=== PATIENT | female | born 1965 | race Two or more races ===

== ENCOUNTER 2018-06-13 13:59 | Outpatient (CLI) | payer OTHER ==
[~2018-06-13 13:59] MED LIST: GINGER250 MG PO; NABUMETONE500 MG PO; PERCOCET 5/3251 TAB PO; TURMERIC ROOT5000 GM MC
== END 2018-06-13 14:23 | disposition home or self-care (01) ==
LOC: RAD 501 13:59
DX: M50.00 Cervical disc disorder with myelopathy, unspecified cervical region (principal); M50.10 Cervical disc disorder with radiculopathy, unspecified cervical region

== ENCOUNTER 2018-06-20 09:52 | Outpatient (CLI) | payer OTHER | END 2018-06-20 10:00 | disposition home or self-care (01) | LOC: RAD 501 09:52 | DX: M25.561 Pain in right knee (principal); M25.562 Pain in left knee; M25.511 Pain in right shoulder ==

== ENCOUNTER 2018-09-17 08:12 | Outpatient (CLI) | payer OTHER | END 2018-09-17 08:17 | disposition home or self-care (01) | LOC: TOM 08:12 | DX: M50.10 Cervical disc disorder with radiculopathy, unspecified cervical region (principal) ==

== ENCOUNTER 2019-02-13 08:27 | Outpatient (CLI) | payer OTHER | END 2019-02-13 17:00 | disposition home or self-care (01) | LOC: RAD 08:27 | DX: M25.511 Pain in right shoulder (principal); E07.89 Other specified disorders of thyroid; M25.552 Pain in left hip; M25.561 Pain in right knee; M25.562 Pain in left knee ==

== ENCOUNTER 2019-02-24 12:32 | Emergency (ER) | payer OTHER ==
[~2019-02-24] VITALS: Ht 154.9 cm; Wt 65.3 kg
== END 2019-02-24 14:10 | disposition home or self-care (01) ==
LOC: ER 12:32
DX: R07.89 Other chest pain (principal)

== ENCOUNTER 2019-04-17 09:19 | Outpatient (CLI) | payer OTHER | END 2019-04-17 09:29 | disposition home or self-care (01) | LOC: SONOGRAMA 09:19 | DX: M25.511 Pain in right shoulder (principal) ==

== ENCOUNTER 2019-09-09 10:09 | Outpatient (CLI) | payer OTHER | END 2019-09-09 10:23 | disposition home or self-care (01) | LOC: MAMO-SONO 10:09 | DX: Z12.31 Encounter for screening mammogram for malignant neoplasm of breast (principal); Z87.898 Personal history of other specified conditions ==

== ENCOUNTER 2019-12-23 14:24 | Inpatient (IN) | payer OTHER ==
[~2019-12-23] VITALS: Ht 154.9 cm; Wt 68.0 kg
[2019-12-26] MEDS ORDERED: GABAPENTIN800 M1 PO (08:24)
[2019-12-26] MEDS ORDERED: VOLTAREN-XR100 MG PO (08:24)
[2019-12-31] MEDS ORDERED: VOLTAREN100 GM (09:32)
[2019-12-31] MEDS ORDERED: GABAPENTIN400 MG PO (09:33)
[2019-12-31] MEDS ORDERED: DICLOFENAC SODI75 MG PO (11:03)
== END 2020-01-02 13:38 | disposition home or self-care (01) | DRG 467 ==
LOC: O/R 12-31 06:45 → SURH 12-31 07:00 → SURG 12-31 16:09
PROVIDERS: ADMIT Orthopaedic Surgery; ATTEND Orthopaedic Surgery
PROC: 0SWD0JZ Revision of Synthetic Substitute in Left Knee Joint, Open Approach (ICD-10-PCS; principal; 2019-12-31 07:00)
DX: T84.84XA Pain due to internal orthopedic prosthetic devices, implants and grafts, initial encounter (principal); D62 Acute posthemorrhagic anemia

== ENCOUNTER 2020-02-05 11:42 | Outpatient (CLI) | payer OTHER ==
[~2020-02-05 11:42] MED LIST changes: +DICLOFENAC SODI75 MG PO; +GABAPENTIN400 MG PO; +GABAPENTIN800 M1 PO; +VOLTAREN-XR100 MG PO; +VOLTAREN100 GM
== END 2020-02-05 11:51 | disposition home or self-care (01) ==
LOC: RAD 11:42
PROVIDERS: ATTEND Orthopaedic Surgery
DX: M25.551 Pain in right hip (principal); M25.552 Pain in left hip; M25.561 Pain in right knee; M25.562 Pain in left knee

== ENCOUNTER 2020-06-15 12:52 | Outpatient (CLI) | payer OTHER | END 2020-06-15 13:05 | disposition home or self-care (01) | LOC: RAD 12:52 | PROVIDERS: ATTEND Orthopaedic Surgery | DX: R07.89 Other chest pain (principal); M54.5 Low back pain ==

== ENCOUNTER 2020-07-01 12:53 | Outpatient (CLI) | payer OTHER | END 2020-07-01 13:15 | disposition home or self-care (01) | LOC: LAB 12:53 | DX: M19.041 Primary osteoarthritis, right hand (principal); M19.042 Primary osteoarthritis, left hand; M06.9 Rheumatoid arthritis, unspecified ==

== ENCOUNTER → 2020-08-10 10:39 | Outpatient (CLI) | payer OTHER | END | disposition home or self-care (01) | LOC: LAB 10:39 | PROVIDERS: ATTEND Radiology Diagnostic Radiology | DX: M50.00 Cervical disc disorder with myelopathy, unspecified cervical region (principal) ==

== ENCOUNTER 2020-08-12 07:49 | Outpatient (CLI) | payer OTHER | END 2020-08-12 08:19 | disposition home or self-care (01) | LOC: MRI 07:49 | PROVIDERS: ATTEND Orthopaedic Surgery | DX: M51.37 Other intervertebral disc degeneration, lumbosacral region (principal); M48.02 Spinal stenosis, cervical region; M50.10 Cervical disc disorder with radiculopathy, unspecified cervical region | CPT/HCPCS: 72148; 72156 ==